=== PATIENT | female | born 1975 ===

== ENCOUNTER 2021-09-02 15:10 | Emergency (ER) | payer SELFPAY ==
[2021-09-02 15:14] VITALS: BP 153/83
--- NOTE | 2021-09-03 11:09 | Electrocardiograph Report ---
[facility] Test Date: 2021-09-02 Test Time: 15:23:06 Pat Name: LEMUEL COUGHLIN Department: Room: Gender: F Physician President: ROOSEVELT : 1975 Requested By: ED DOC Order Number: [id number] Reading MD: Dilip Ireland Measurements Intervals [place] Rate: 93 P: 52 ID: [id number] QRS: -2 QRSD: 87 T: 42 QT: 388 QTc: 482 Interpretive Statements Sinus rhythm No previous ECG available for comparison Electronically Signed On 09-03-2021 11:09:32 EDT by Dilip Ireland
== END 2021-09-03 13:49 | disposition left against medical advice (07) ==
LOC: ED 15:10
DX: R07.9 Chest pain, unspecified (principal); F10.10 Alcohol abuse, uncomplicated; Z53.21 Procedure and treatment not carried out due to patient leaving prior to being seen by health care provider
CPT/HCPCS: 93005